=== PATIENT | male | born 1940 | race Two or more races ===

== ENCOUNTER 2021-09-05 07:07 | Emergency (ER) | payer SELFPAY ==
[~2021-09-05] VITALS: Ht 180.3 cm; Wt 77.1 kg
[2021-09-05 07:47] LABS: Urine Bacteria NONE SEEN /hpf (None Seen); Urine Blood 2+ /uL (Negative); Urine Mucus FEW (None Seen); Urine Specific Gravity 1.031 (1.001-1.035); Urine WBC 99 /hpf (0 - 3)
[2021-09-05 07:49] LABS: Basophils # (auto) 0 10 ^3/uL (0-0.2); Basophils % (auto) 0.2 % (0.0-2.0); Eosinophils # (auto) 0 10 ^3/uL (0-0.8); Eosinophils % (auto) 0.4 % (0.0-7.0); Hematocrit 38.5 % (41.0-53.0); Hemoglobin 12.8 g/dL (13.5-17.5); Lymphocytes # (auto) 0.4 10 ^3/uL (0.4-5.4); Lymphocytes % (auto) 4.4 % (10.0-50.0); Mean Corpuscular Hemoglobin 30.6 pg (28.0-32.0); Mean Corpuscular Hgb Conc. 33.3 g/dL (32.0-36.0); Mean Corpuscular Volume 91.7 fL (80.0-100.0); Monocytes % (auto) 11.8 % (0.0-12.0); Neutrophils # (auto) 6.8 10 ^3/uL (1.6-8.6); Neutrophils % (auto) 83.2 % (37.0-80.0); Red Cell Distribution Width 13.9 % (11.8-14.3); White Blood Cell 8.2 10^3/uL (4.4-10.8)
[2021-09-05 08:05] LABS: Albumin 2.9 g/dL (3.4-5.0); BUN/Creatinine Ratio 11.3; Potassium 3.4 mmol/L (3.5-5.1)
[2021-09-05 08:09] LABS: Bilirubin, Total 0.9 mg/dL (0.2-1.0); Total Protein 7.1 g/dL (6.4-8.2)
[2021-09-05] MEDS ORDERED: cefTRIAXone 1GM/50ML D5W 50 ML IV ONE ×2 (09:45→10:20)
[2021-09-05 11:40] VITALS: BP 131/72
[2021-09-05] MEDS ORDERED: SULF400T11 PO (12:30)
== END 2021-09-05 12:54 | disposition home or self-care (01) ==
LOC: ER 07:07
DX: N39.0 Urinary tract infection, site not specified (principal); R32 Unspecified urinary incontinence; Z20.822 Contact with and (suspected) exposure to COVID-19
CPT/HCPCS: 36415; 74176; 80053; 81001; 85025; 87426; 96365; 99284; J0696

== ENCOUNTER 2024-03-16 08:50 | Inpatient (IN) | payer MEDICAID, OTHER ==
[~2024-03-16] VITALS: Ht 172.7 cm; Wt 75.0 kg
[~2024-03-16 08:50] MED LIST: SULF400T11 PO
[2024-03-16 10:23] LABS: Basophils # (auto) 0 10 ^3/uL (0-0.2); Basophils % (auto) 0.4 % (0.0-2.0); Eosinophils # (auto) 0.3 10 ^3/uL (0-0.8); Hematocrit 42.8 % (41.0-53.0); Hemoglobin 13.9 g/dL (13.5-17.5); Lymphocytes # (auto) 1.1 10 ^3/uL (0.4-5.4); Lymphocytes % (auto) 11.8 % (10.0-50.0); Mean Corpuscular Hemoglobin 27.4 pg (28.0-32.0); Mean Corpuscular Hgb Conc. 32.4 g/dL (32.0-36.0); Mean Corpuscular Volume 84.5 fL (80.0-100.0); Monocytes # (auto) 0.8 10 ^3/uL (0-1.3); Monocytes % (auto) 8.2 % (0.0-12.0); Neutrophils # (auto) 7.2 10 ^3/uL (1.6-8.6); Neutrophils % (auto) 76.6 % (37.0-80.0); Platelet Count (auto) 262 10^3/uL (140-450); Red Blood Cells 5.07 10^6/uL (4.5-5.90); Red Cell Distribution Width 19.1 % (11.8-14.3); White Blood Cell 9.4 10^3/uL (4.4-10.8)
[2024-03-16 10:39] LABS: Alanine Aminotransferase 18 U/L (7-40); Albumin 4.3 g/dL (3.2-4.8); Alkaline Phosphatase 63 U/L (46-116); Anion Gap 5 (5-15); Aspartate Aminotransferase 17 U/L (13-40); BUN/Creatinine Ratio 14.6 (10.0-20.0); Blood Urea Nitrogen 13 mg/dL (9-23); Calcium 9.9 mg/dL (8.7-10.4); Carbon Dioxide 27 mmol/L (20-30); Chloride 109 mmol/L (98-107); Glucose 106 mg/dL (74-106); Potassium 4.2 mmol/L (3.5-5.1); Sodium 141 mmol/L (136-145)
[2024-03-16 10:40] LABS: Bilirubin, Total 0.9 mg/dL (0.2-1.0); Total Protein 7.2 g/dL (5.7-8.2)
[2024-03-16] MEDS ORDERED: PIPERACILLIN-TAZOB 3.375GM 100 ML IV ONE (11:30)
[2024-03-16] MEDS: PANTOPRAZOLE 40 MG/10 ML VIAL INJ IV ONE (11:30)
[2024-03-16] MEDS: SODIUM CHLORIDE 0.9% 1,000 ML IV SCH (11:30)
[2024-03-16] MEDS ORDERED: DOCUSATE SOD 100 MG CAP PO PRN (11:30)
[2024-03-16 11:32] VITALS: PULSE 73; RESP 18; O2SAT 98
[2024-03-16] MEDS ORDERED: NITROGLYCERIN 0.4 MG SL TAB SL PRN (11:45)
[2024-03-16 11:59] LABS: INR 1.03 (0.9-1.15); Prothrombin Time 10.9 sec (9.3-11.8)
[2024-03-16] MEDS: GASTROGRAFIN 120 ML SOL ONE (12:18)
[2024-03-16] MEDS: PIPERACILLIN-TAZOB 3.375GM 100 ML IV SCH (13:48)
[2024-03-16] MEDS: ENOXAPARIN SOD 40 MG/0.4 ML SYRINGE SC SCH (13:58)
[2024-03-16 14:45] VITALS: PULSE 65; RESP 13; O2SAT 96
[2024-03-16] MEDS: ONDANSETRON HCL 4 MG/2 ML VIAL IV PRN (15:19)
[2024-03-16] MEDS: hydrALAZINE HCL 20 MG/ML VL IV ONE (15:20)
[2024-03-16] MEDS: MORPHINE SULFATE INJ 2 MG/ml SYRG IV PRN (15:21)
[2024-03-16 17:42] VITALS: PULSE 70; RESP 17; O2SAT 96
[2024-03-16 20:00] VITALS: PULSE 70; RESP 18; O2SAT 93
[2024-03-16 21:00] VITALS: BP 132/70; PULSE 70; RESP 18; TEMP 97.9; O2SAT 92
[2024-03-17 01:00] VITALS: BP 130/69; PULSE 69; RESP 18; TEMP 97.8; O2SAT 92
[2024-03-17 05:00] VITALS: BP 156/76; PULSE 60; RESP 18; TEMP 98.3; O2SAT 93
[2024-03-17 06:29] LABS: Basophils # (auto) 0 10 ^3/uL (0-0.2); Basophils % (auto) 0.5 % (0.0-2.0); Eosinophils # (auto) 0.3 10 ^3/uL (0-0.8); Eosinophils % (auto) 5.2 % (0.0-7.0); Hematocrit 39.9 % (41.0-53.0); Hemoglobin 12.7 g/dL (13.5-17.5); Lymphocytes # (auto) 1.2 10 ^3/uL (0.4-5.4); Lymphocytes % (auto) 21.5 % (10.0-50.0); Mean Corpuscular Hemoglobin 27.6 pg (28.0-32.0); Mean Corpuscular Hgb Conc. 31.8 g/dL (32.0-36.0); Mean Corpuscular Volume 86.9 fL (80.0-100.0); Monocytes # (auto) 0.8 10 ^3/uL (0-1.3); Monocytes % (auto) 15.2 % (0.0-12.0); Neutrophils # (auto) 3.1 10 ^3/uL (1.6-8.6); Neutrophils % (auto) 57.6 % (37.0-80.0); Nucleated Red Blood Cells % 0.1 %; Platelet Count (auto) 247 10^3/uL (140-450); Red Blood Cells 4.59 10^6/uL (4.5-5.90); Red Cell Distribution Width 19.5 % (11.8-14.3); White Blood Cell 5.4 10^3/uL (4.4-10.8)
[2024-03-17 06:48] LABS: Alanine Aminotransferase 13 U/L (7-40); Albumin 3.8 g/dL (3.2-4.8); Alkaline Phosphatase 51 U/L (46-116); Anion Gap 8 (5-15); Aspartate Aminotransferase 15 U/L (13-40); BUN/Creatinine Ratio 7.7 (10.0-20.0); Bilirubin, Total 0.8 mg/dL (0.2-1.0); Blood Urea Nitrogen 7 mg/dL (9-23); Calcium 8.9 mg/dL (8.7-10.4); Carbon Dioxide 24 mmol/L (20-30); Chloride 111 mmol/L (98-107); Glucose 102 mg/dL (74-106); Potassium 4.1 mmol/L (3.5-5.1); Sodium 143 mmol/L (136-145); Total Protein 6.4 g/dL (5.7-8.2)
[2024-03-17 08:42] VITALS: BP 127/73; PULSE 59; RESP 17; TEMP 98.8; O2SAT 94
[2024-03-17] MEDS: PANTOPRAZOLE 40 MG/10 ML VIAL INJ IV SCH (11:35)
[2024-03-17 12:35] VITALS: BP 135/69; PULSE 56; RESP 18; TEMP 98.1; O2SAT 93
[2024-03-17 16:35] VITALS: BP 153/76; PULSE 57; RESP 16; TEMP 98.6; O2SAT 95
[2024-03-17 21:00] VITALS: BP 113/92; PULSE 58; RESP 18; TEMP 97.8; O2SAT 92
[2024-03-18 01:00] VITALS: BP 163/75; PULSE 54; RESP 20; TEMP 98.3; O2SAT 95
[2024-03-18] MEDS: hydrALAZINE HCL 20 MG/ML VL IV PRN (01:43)
[2024-03-18 08:53] VITALS: BP 138/69; PULSE 60; RESP 19; TEMP 98.1; O2SAT 94
[2024-03-18 12:44] VITALS: BP 157/76; PULSE 56; RESP 17; TEMP 97.5; O2SAT 98
[2024-03-18 16:54] VITALS: BP 183/81; PULSE 62; RESP 19; TEMP 98.3; O2SAT 91
[2024-03-18 20:07] VITALS: BP 154/85; PULSE 60
[2024-03-18 21:00] VITALS: BP 177/79; PULSE 60; RESP 19; TEMP 98.9; O2SAT 93
[2024-03-19 01:00] VITALS: BP 147/71; PULSE 74; RESP 17; TEMP 98.6; O2SAT 92
[2024-03-19 05:00] VITALS: BP 164/79; PULSE 71; RESP 18; TEMP 98.7; O2SAT 94
[2024-03-19 06:06] LABS: Chloride 110 mmol/L (98-107); Potassium 3.3 mmol/L (3.5-5.1); Sodium 140 mmol/L (136-145)
[2024-03-19 06:07] LABS: Anion Gap 10 (5-15); Carbon Dioxide 20 mmol/L (20-30)
[2024-03-19 06:08] LABS: Calcium 8.5 mg/dL (8.7-10.4)
[2024-03-19 06:12] LABS: BUN/Creatinine Ratio 9.1 (10.0-20.0); Blood Urea Nitrogen 7 mg/dL (9-23); Glucose 78 mg/dL (74-106)
[2024-03-19 08:48] VITALS: BP 154/78; PULSE 71; RESP 18; TEMP 98.7; O2SAT 94
[2024-03-19 12:52] VITALS: BP 160/84; PULSE 65; RESP 16; TEMP 98.9; O2SAT 96
[2024-03-19 16:55] VITALS: BP 167/96; PULSE 71; RESP 18; TEMP 98.5; O2SAT 96
[2024-03-19 21:00] VITALS: BP 176/93; PULSE 70; RESP 18; TEMP 99.8; O2SAT 95
[2024-03-20] MEDS: KETOROLAC TROMETH 30 MG/ML 1ML VIAL IV ONE (03:45)
[2024-03-20 05:00] VITALS: BP 167/84; PULSE 65; RESP 22; TEMP 98.6; O2SAT 98
[2024-03-20 07:51] VITALS: BP 149/90; PULSE 64
[2024-03-20 08:00] VITALS: PULSE 66; RESP 18; O2SAT 95
[2024-03-20 12:00] VITALS: BP 144/91; PULSE 70; RESP 18; TEMP 98.1; O2SAT 97
[2024-03-20] MEDS ORDERED: HYDROcodone-ACET 5/325MG TAB PO PRN (13:00)
[2024-03-20] MEDS: KETOROLAC TROMETH 30 MG/ML 1ML VIAL IV PRN (13:10)
[2024-03-20] MEDS: COLCHICINE 0.6 MG CAP PO SCH (14:00)
[2024-03-20 16:00] VITALS: BP 154/79; PULSE 62; RESP 16; TEMP 98.1; O2SAT 98
[2024-03-20 21:00] VITALS: BP 148/85; PULSE 74; RESP 16; TEMP 98.7; O2SAT 96
[2024-03-21] VITALS (8 sets, daily range): BP systolic 146–167; BP diastolic 75–87; PULSE 55–76; RESP 16–21; TEMP 97.8–98.5; O2SAT 91–96
[2024-03-21 12:24] LABS: Basophils # (auto) 0 10 ^3/uL (0-0.2); Basophils % (auto) 0.5 % (0.0-2.0); Eosinophils # (auto) 0.3 10 ^3/uL (0-0.8); Eosinophils % (auto) 5.6 % (0.0-7.0); Hematocrit 37.5 % (41.0-53.0); Hemoglobin 12.2 g/dL (13.5-17.5); Lymphocytes # (auto) 0.9 10 ^3/uL (0.4-5.4); Lymphocytes % (auto) 14.8 % (10.0-50.0); Mean Corpuscular Hemoglobin 27.6 pg (28.0-32.0); Mean Corpuscular Hgb Conc. 32.6 g/dL (32.0-36.0); Mean Corpuscular Volume 84.7 fL (80.0-100.0); Monocytes # (auto) 0.7 10 ^3/uL (0-1.3); Monocytes % (auto) 11.8 % (0.0-12.0); Neutrophils # (auto) 4.1 10 ^3/uL (1.6-8.6); Neutrophils % (auto) 67.3 % (37.0-80.0); Platelet Count (auto) 250 10^3/uL (140-450); Red Blood Cells 4.43 10^6/uL (4.5-5.90); Red Cell Distribution Width 18.3 % (11.8-14.3); White Blood Cell 6.1 10^3/uL (4.4-10.8)
[2024-03-21 12:47] LABS: Alanine Aminotransferase 12 U/L (7-40); Albumin 3.6 g/dL (3.2-4.8); Alkaline Phosphatase 41 U/L (46-116); Anion Gap 9 (5-15); Aspartate Aminotransferase 17 U/L (13-40); BUN/Creatinine Ratio 10.5 (10.0-20.0); Blood Urea Nitrogen 8 mg/dL (9-23); Calcium 8.9 mg/dL (8.7-10.4); Carbon Dioxide 20 mmol/L (20-30); Chloride 113 mmol/L (98-107); Glucose 102 mg/dL (74-106); Potassium 3.1 mmol/L (3.5-5.1); Sodium 142 mmol/L (136-145)
[2024-03-21 12:48] LABS: Bilirubin, Total 0.7 mg/dL (0.2-1.0); Total Protein 6.3 g/dL (5.7-8.2)
[2024-03-22 01:00] VITALS: BP 138/76; PULSE 72; RESP 18; TEMP 97.7; O2SAT 93
[2024-03-22 05:00] VITALS: BP 135/80; PULSE 61; RESP 18; TEMP 98; O2SAT 94
[2024-03-22 08:28] LABS: Basophils # (auto) 0 10 ^3/uL (0-0.2); Basophils % (auto) 0.7 % (0.0-2.0); Eosinophils # (auto) 0.5 10 ^3/uL (0-0.8); Eosinophils % (auto) 7.8 % (0.0-7.0); Hemoglobin 13.1 g/dL (13.5-17.5); Lymphocytes # (auto) 1.4 10 ^3/uL (0.4-5.4); Lymphocytes % (auto) 22.7 % (10.0-50.0); Mean Corpuscular Hemoglobin 27.7 pg (28.0-32.0); Mean Corpuscular Hgb Conc. 32.8 g/dL (32.0-36.0); Mean Corpuscular Volume 84.5 fL (80.0-100.0); Monocytes # (auto) 0.8 10 ^3/uL (0-1.3); Monocytes % (auto) 12.7 % (0.0-12.0); Neutrophils # (auto) 3.4 10 ^3/uL (1.6-8.6); Neutrophils % (auto) 56.1 % (37.0-80.0); Platelet Count (auto) 283 10^3/uL (140-450); Red Blood Cells 4.74 10^6/uL (4.5-5.90); Red Cell Distribution Width 18.7 % (11.8-14.3)
[2024-03-22 08:44] LABS: Alanine Aminotransferase 12 U/L (7-40); Albumin 3.9 g/dL (3.2-4.8); Alkaline Phosphatase 46 U/L (46-116); Anion Gap 8 (5-15); BUN/Creatinine Ratio 9.6 (10.0-20.0); Blood Urea Nitrogen 8 mg/dL (9-23); Calcium 9.2 mg/dL (8.7-10.4); Carbon Dioxide 20 mmol/L (20-30); Chloride 113 mmol/L (98-107); Glucose 105 mg/dL (74-106); Potassium 3.2 mmol/L (3.5-5.1); Sodium 141 mmol/L (136-145)
[2024-03-22 08:45] LABS: Aspartate Aminotransferase 19 U/L (13-40)
[2024-03-22 08:46] LABS: Bilirubin, Total 0.8 mg/dL (0.2-1.0); Total Protein 6.7 g/dL (5.7-8.2)
[2024-03-22 09:00] VITALS: BP 151/86; PULSE 61; RESP 18; TEMP 98.1; O2SAT 92
[2024-03-22 13:00] VITALS: BP 175/90; PULSE 53; RESP 18; TEMP 98.1; O2SAT 93
[2024-03-22 17:00] VITALS: BP 161/85; PULSE 61; RESP 19; TEMP 98.1; O2SAT 93
[2024-03-22 21:00] VITALS: BP 155/83; PULSE 58; RESP 17; TEMP 98; O2SAT 94
[2024-03-23] VITALS (8 sets, daily range): BP systolic 127–175; BP diastolic 77–93; PULSE 55–69; RESP 14–18; TEMP 97.8–98.3; O2SAT 95–98
[2024-03-23 07:08] LABS: Basophils # (auto) 0 10 ^3/uL (0-0.2); Basophils % (auto) 1.1 % (0.0-2.0); Eosinophils # (auto) 0.4 10 ^3/uL (0-0.8); Eosinophils % (auto) 10.8 % (0.0-7.0); Hematocrit 36.6 % (41.0-53.0); Hemoglobin 12.1 g/dL (13.5-17.5); Lymphocytes # (auto) 1.1 10 ^3/uL (0.4-5.4); Lymphocytes % (auto) 27.2 % (10.0-50.0); Mean Corpuscular Hemoglobin 27.9 pg (28.0-32.0); Mean Corpuscular Hgb Conc. 32.9 g/dL (32.0-36.0); Mean Corpuscular Volume 84.7 fL (80.0-100.0); Monocytes # (auto) 0.5 10 ^3/uL (0-1.3); Monocytes % (auto) 13.3 % (0.0-12.0); Neutrophils # (auto) 1.9 10 ^3/uL (1.6-8.6); Neutrophils % (auto) 47.6 % (37.0-80.0); Platelet Count (auto) 277 10^3/uL (140-450); Red Blood Cells 4.33 10^6/uL (4.5-5.90); Red Cell Distribution Width 18.5 % (11.8-14.3); White Blood Cell 4.1 10^3/uL (4.4-10.8)
[2024-03-23 07:14] LABS: Alanine Aminotransferase 13 U/L (7-40); Albumin 3.3 g/dL (3.2-4.8); Alkaline Phosphatase 37 U/L (46-116); Anion Gap 9 (5-15); Aspartate Aminotransferase 15 U/L (13-40); BUN/Creatinine Ratio 7.9 (10.0-20.0); Blood Urea Nitrogen 6 mg/dL (9-23); Calcium 8.9 mg/dL (8.7-10.4); Carbon Dioxide 21 mmol/L (20-30); Chloride 114 mmol/L (98-107); Glucose 105 mg/dL (74-106); Potassium 3.2 mmol/L (3.5-5.1); Sodium 144 mmol/L (136-145)
[2024-03-23 07:15] LABS: Bilirubin, Total 0.5 mg/dL (0.2-1.0)
[2024-03-23] MEDS ORDERED: IBUP-1454 PO (12:03)
[2024-03-23] MEDS ORDERED: METF-370 PO (12:03)
[2024-03-23] MEDS ORDERED: FER325T PO (12:03)
[2024-03-23] MEDS ORDERED: DICY10CA PO (12:03)
[2024-03-23] MEDS ORDERED: LOSA-534 PO (12:03)
[2024-03-23] MEDS ORDERED: LORA-622 PO (12:03)
[2024-03-23] MEDS ORDERED: GABA-1250 PO (12:03)
[2024-03-23] MEDS: POTASSIUM CHL 20 Meq TABLET PO ONE (14:10)
[2024-03-24] VITALS (7 sets, daily range): BP systolic 141–182; BP diastolic 77–92; PULSE 55–63; RESP 16–18; TEMP 36.7; O2SAT 96–98
[2024-03-24 04:58] LABS: Basophils # (auto) 0.1 10 ^3/uL (0-0.2); Basophils % (auto) 1.1 % (0.0-2.0); Eosinophils # (auto) 0.4 10 ^3/uL (0-0.8); Eosinophils % (auto) 8.5 % (0.0-7.0); Hemoglobin 11.9 g/dL (13.5-17.5); Lymphocytes # (auto) 1.2 10 ^3/uL (0.4-5.4); Mean Corpuscular Hemoglobin 28.5 pg (28.0-32.0); Mean Corpuscular Hgb Conc. 34.1 g/dL (32.0-36.0); Mean Corpuscular Volume 83.8 fL (80.0-100.0); Monocytes # (auto) 0.6 10 ^3/uL (0-1.3); Neutrophils # (auto) 2.5 10 ^3/uL (1.6-8.6); Neutrophils % (auto) 53.4 % (37.0-80.0); Platelet Count (auto) 288 10^3/uL (140-450); Red Blood Cells 4.18 10^6/uL (4.5-5.90); Red Cell Distribution Width 18.1 % (11.8-14.3); White Blood Cell 4.7 10^3/uL (4.4-10.8)
[2024-03-24] MEDS ORDERED: LEVO500T91 PO (10:45)
[2024-03-24] MEDS ORDERED: TRAM-626 PO (10:45)
[2024-03-24] MEDS ORDERED: METR-344 PO (10:45)
== END 2024-03-24 18:45 | disposition home or self-care (01) | DRG 247 ==
LOC: ER 08:55 → OVERFLOW 11:46 → WEST WING 17:19
PROVIDERS: ADMIT Nurse Practitioner Family; ATTEND Family Medicine
PROC: 0D9670Z Drainage of Stomach with Drainage Device, Via Natural or Artificial Opening (ICD-10-PCS; principal; 2024-03-16)
DX: K56.609 Unspecified intestinal obstruction, unspecified as to partial versus complete obstruction (principal); F10.90 Alcohol use, unspecified, uncomplicated; I10 Essential (primary) hypertension; M10.9 Gout, unspecified; M25.422 Effusion, left elbow; Z79.899 Other long term (current) drug therapy; Y90.9 Presence of alcohol in blood, level not specified
CPT/HCPCS: 36415; 71045; 73200; 73221; 74018; 74176; 74250; 80048; 80053; 80320; 84484; 84550; 85025; 85610; 86850; 86900; 86901; 93005; G0378; J1885; J2405; J2470; J2543

== ENCOUNTER 2024-05-03 15:02 | Inpatient (IN) | payer MEDICAID ==
[~2024-05-03] VITALS: Ht 162.6 cm; Wt 69.8 kg
[~2024-05-03 15:02] MED LIST changes: +DICY10CA PO; +FER325T PO; +GABA-1250 PO; +IBUP-1454 PO; +LEVO500T91 PO; +LORA-622 PO; +LOSA-534 PO; +METF-370 PO; +METR-344 PO; +TRAM-626 PO
[2024-05-03 18:39] LABS: Basophils # (auto) 0 10 ^3/uL (0-0.2); Eosinophils # (auto) 0 10 ^3/uL (0-0.8); Eosinophils % (auto) 0.3 % (0.0-7.0); Hematocrit 42.4 % (41.0-53.0); Hemoglobin 14.2 g/dL (13.5-17.5); Lymphocytes # (auto) 1.1 10 ^3/uL (0.4-5.4); Lymphocytes % (auto) 9.1 % (10.0-50.0); Mean Corpuscular Hemoglobin 28.6 pg (28.0-32.0); Mean Corpuscular Hgb Conc. 33.4 g/dL (32.0-36.0); Mean Corpuscular Volume 85.5 fL (80.0-100.0); Monocytes % (auto) 8.1 % (0.0-12.0); Neutrophils # (auto) 9.8 10 ^3/uL (1.6-8.6); Neutrophils % (auto) 82.5 % (37.0-80.0); Nucleated Red Blood Cells % 0.2 %; Platelet Count (auto) 285 10^3/uL (140-450); Red Blood Cells 4.95 10^6/uL (4.5-5.90); Red Cell Distribution Width 18.4 % (11.8-14.3); White Blood Cell 11.9 10^3/uL (4.4-10.8)
[2024-05-03 23:31] LABS: Alanine Aminotransferase 16 U/L (7-40); Albumin 4.3 g/dL (3.2-4.8); Alkaline Phosphatase 54 U/L (46-116); Anion Gap 9 (5-15); Aspartate Aminotransferase 19 U/L (13-40); BUN/Creatinine Ratio 20.9 (10.0-20.0); Bilirubin, Total 1.2 mg/dL (0.2-1.0); Blood Urea Nitrogen 27 mg/dL (9-23); Calcium 9.8 mg/dL (8.7-10.4); Carbon Dioxide 26 mmol/L (20-31); Chloride 105 mmol/L (98-107); Glucose 108 mg/dL (74-106); Potassium 4.6 mmol/L (3.5-5.1); Sodium 140 mmol/L (136-145); Total Protein 7.1 g/dL (5.7-8.2)
[2024-05-04] VITALS (7 sets, daily range): BP systolic 120–147; BP diastolic 62–80; PULSE 50–75; RESP 16–20; TEMP 97.8–98.6; O2SAT 93–99
[2024-05-04] MEDS ORDERED: MORPHINE SULFATE INJ 2 MG/ml SYRG IV PRN
[2024-05-04] MEDS: metroNIDAZOLE 500MG/100ML 100 ML IV SCH (05:35)
[2024-05-04] MEDS: SODIUM CHLORIDE 0.9% 1,000 ML IV SCH (05:35)
[2024-05-04] MEDS ORDERED: PANTOPRAZOLE 40 MG TAB PO SCH (06:00)
[2024-05-04 07:30] LABS: Alanine Aminotransferase 15 U/L (7-40); Albumin 3.8 g/dL (3.2-4.8); Alkaline Phosphatase 52 U/L (46-116); Anion Gap 6 (5-15); Aspartate Aminotransferase 13 U/L (13-40); BUN/Creatinine Ratio 28.1 (10.0-20.0); Blood Urea Nitrogen 32 mg/dL (9-23); Calcium 9.2 mg/dL (8.7-10.4); Carbon Dioxide 29 mmol/L (20-31); Chloride 105 mmol/L (98-107); Glucose 104 mg/dL (74-106); Potassium 4.3 mmol/L (3.5-5.1); Sodium 140 mmol/L (136-145)
[2024-05-04 07:31] LABS: Bilirubin, Total 0.8 mg/dL (0.2-1.0); Total Protein 6.4 g/dL (5.7-8.2)
[2024-05-04 07:34] LABS: Basophils # (auto) 0 10 ^3/uL (0-0.2); Basophils % (auto) 0.1 % (0.0-2.0); Eosinophils # (auto) 0.1 10 ^3/uL (0-0.8); Eosinophils % (auto) 0.9 % (0.0-7.0); Hematocrit 39.4 % (41.0-53.0); Hemoglobin 13.5 g/dL (13.5-17.5); Lymphocytes # (auto) 1.1 10 ^3/uL (0.4-5.4); Lymphocytes % (auto) 13.6 % (10.0-50.0); Mean Corpuscular Hemoglobin 29.4 pg (28.0-32.0); Mean Corpuscular Hgb Conc. 34.3 g/dL (32.0-36.0); Mean Corpuscular Volume 85.6 fL (80.0-100.0); Monocytes # (auto) 0.8 10 ^3/uL (0-1.3); Monocytes % (auto) 9.7 % (0.0-12.0); Neutrophils # (auto) 6.1 10 ^3/uL (1.6-8.6); Neutrophils % (auto) 75.7 % (37.0-80.0); Nucleated Red Blood Cells % 0.1 %; Platelet Count (auto) 242 10^3/uL (140-450); Red Cell Distribution Width 18.5 % (11.8-14.3)
[2024-05-04] MEDS: PANTOPRAZOLE 40 MG/10 ML VIAL INJ IV SCH (09:32)
[2024-05-04] MEDS: cefTRIAXone 1GM/50ML D5W 50 ML IV SCH (09:32)
[2024-05-04] MEDS ORDERED: GASTROGRAFIN 120 ML SOL ONE (09:33)
[2024-05-04] MEDS ORDERED: METOCLOPRAMIDE HCL 5MG/ml INJ 2ml VIAL IV PRN (12:30)
[2024-05-05 01:23] VITALS: BP 142/77; PULSE 54; RESP 18; TEMP 97.9; O2SAT 97
[2024-05-05 05:00] VITALS: BP 139/79; PULSE 54; RESP 17; TEMP 97.9; O2SAT 95
[2024-05-05 08:00] VITALS: O2SAT 95
[2024-05-05 08:35] LABS: Anion Gap 7 (5-15); Carbon Dioxide 25 mmol/L (20-31); Chloride 109 mmol/L (98-107); Potassium 4.3 mmol/L (3.5-5.1); Sodium 141 mmol/L (136-145)
[2024-05-05 08:36] LABS: Calcium 8.9 mg/dL (8.7-10.4)
[2024-05-05 08:40] LABS: Basophils # (auto) 0 10 ^3/uL (0-0.2); Basophils % (auto) 0.1 % (0.0-2.0); Eosinophils # (auto) 0 10 ^3/uL (0-0.8); Eosinophils % (auto) 0.4 % (0.0-7.0); Hemoglobin 12.9 g/dL (13.5-17.5); Lymphocytes % (auto) 13.4 % (10.0-50.0); Mean Corpuscular Hemoglobin 29.3 pg (28.0-32.0); Mean Corpuscular Hgb Conc. 33.9 g/dL (32.0-36.0); Mean Corpuscular Volume 86.3 fL (80.0-100.0); Monocytes # (auto) 0.6 10 ^3/uL (0-1.3); Monocytes % (auto) 8.9 % (0.0-12.0); Neutrophils # (auto) 5.6 10 ^3/uL (1.6-8.6); Neutrophils % (auto) 77.2 % (37.0-80.0); Platelet Count (auto) 230 10^3/uL (140-450); Red Cell Distribution Width 18.1 % (11.8-14.3); White Blood Cell 7.3 10^3/uL (4.4-10.8)
[2024-05-05 08:41] LABS: Blood Urea Nitrogen 15 mg/dL (9-23); Glucose 102 mg/dL (74-106)
[2024-05-05 09:00] VITALS: BP 161/88; PULSE 45; RESP 18; TEMP 98.6; O2SAT 96
[2024-05-05 16:42] VITALS: BP 148/87; PULSE 55; RESP 16; TEMP 98.7; O2SAT 95
== END 2024-05-05 20:25 | disposition home or self-care (01) | DRG 247 ==
LOC: ER 15:11 → OVERFLOW 23:50 → CENTRAL 05-04 03:00
PROVIDERS: ADMIT Internal Medicine; ATTEND Internal Medicine
DX: K56.7 Ileus, unspecified (principal); E11.9 Type 2 diabetes mellitus without complications; I10 Essential (primary) hypertension; J98.11 Atelectasis
CPT/HCPCS: 36415; 71045; 74176; 74250; 80048; 80053; 82378; 82962; 83690; 85025; 93005; G0378; J2470; J3490